=== PATIENT | male | born 1955 ===

== ENCOUNTER → 2023-07-10 14:11 | Outpatient (POV) | payer MEDICARE, SELFPAY ==
[2023-07-10 14:38] VITALS: BP 144/89; PULSE 61; RESP 20; O2SAT 98; BMI 29.5
--- NOTE | 2023-07-10 16:21 | EXP.PAIN.OV ---
HPI Data of Consult Patient: new to practice Consult date: 07/10/23 Requesting Physician: Brisa Perales APRN Primary Care Provider: TOBY Harvey Consult Narrative Reason for consult: Low back pain, right leg pain History of present illness: Mr. Baxter is a 67 year old male who presents today as a patient coming from the [facility]. Today he rates his pain a 5 out of 10. Patient states his pain is all in his low back and right leg. Patient states that this has been going on for years and unrelated to any specific trauma or injury. He does describe this as an aching, throbbing sensation with numbness and tingling into his right lower extremity. Patient does state the pain is worse with increased activity such as standing or walking. Patient states he does frequently have to stop and take breaks however if he is sitting he has no pain. Patient also states that overall when he is lying down and sleeping it does okay. Patient states that in the past he has gone to multiple providers that did do multiple therapies including physical therapy, PRP, compression table, lumbar RFA's. Patient states that all of this seemed to help some. He has been getting lumbar epidurals there at the [place] that have provided upwards of 75% relief and typically lasting 5 to 6 weeks with each of these. Patient has had 3 different injections with his last one just done in April. Patient does also have a significant health history of liver cancer and did just have a liver transplant 5 years ago in September. Patient states he has to be very cautious with what medications he takes due to this. Patient states that he does also have a abdominal hernia at the location of his prior liver scar and that this is going to be repaired within the next month or so at . Patient does state that he is still interested in doing additional epidurals in the future however he does want to take care of the hernia first. Patient does continue to do home physical therapy that was physician directed exercises from his last PT. His Shaheen has been reviewed and is appropriate. CC: Brisa Perales APRN [facility] Disclaimer: The information contained in this section may have been updated after the patient was seen, as this information can be updated by other users. Medical History (Updated 07/10/23 @ 16:25 by Brisa Perales APRN) BPH (benign prostatic hyperplasia) Degenerative disc disease, lumbar Hiatal hernia HTN (hypertension) Surgical History (Updated 07/10/23 @ 14:50 by Yeny Mckenna, BRAYDEN) H/O liver transplant History of ankle surgery History of repair of hiatal hernia Hx of cholecystectomy Hx of eye surgery Family History (Updated 07/10/23 @ 14:25 by Alicia Valdez RN) Other Unknown family medical history Social History (Updated 07/10/23 @ 14:39 by Yeny Mckenna RN) Smoking Status: Never smoker alcohol intake: former current occupational status: other Travel in the last 8 weeks: None Review of Systems Review of Systems Review of systems:: pertinent systems reviewed and negative unless documented below Review of systems (narrative): Review of Systems: General: No recent weight changes, no fever, no sleep disturbances Respiratory: No cough, no shortness of air, no recurring pulmonary infections Cardiovascular/peripheral vascular: No chest pain, no palpitations, no edema, no shortness of breath Gastrointestinal: No new onset incontinence, normal bowel movements reported Genitourinary: No new onset incontinence Musculoskeletal: Low back pain, right leg pain Psychiatric: [Normal mood/affect] Neurological: [Denies weakness in extremities], [denies balance issues] Meds Home Medications and Allergies Home Medications Medication Instructions Recorded Confirmed Type amlodipine 5 mg tablet 5 mg PO DAILY BLOOD PRESSURE 07/10/23 07/10/23 History aspirin 81 mg chewable tablet 81 mg PO DAILY 07/10/23 07/10/23 History entecavir 1 mg tablet 1 mg PO DAILY . 07/10/23 07/10/23 History mycophenolate mofetil 250 mg 500 mg PO BID 07/10/23 07/10/23 History capsule (CellCept) tacrolimus 0.5 mg capsule, 0.5 mg PO BID . 07/10/23 07/10/23 History immediate-release (Prograf) tamsulosin 0.4 mg capsule 0.4 mg PO DAILY PROSTATE 07/10/23 07/10/23 History New Prescriptions to Start Prescriptions: Allergies Allergy/AdvReac Type Severity Reaction Status Date / Time No Known Allergies Allergy Verified 07/10/23 14:19 Objective Vital signs: Pulse Resp BP Pulse Ox O2 Del Method 61 20 144/89 H 98 Room Air 07/10/23 14:38 07/10/23 14:38 07/10/23 14:38 07/10/23 14:38 07/10/23 14:38 Narrative: Physical Exam: General: Alert and oriented x3, no acute distress, pleasant and cooperative Lungs: Respirations even and unlabored, symmetrical chest expansion Eyes: PERRL Musculoskeletal: Flexion and extension of lumbar [spine] somewhat guarded secondary to pain, [antalgic gait noted] Neurological: Speech clear, no gross sensory deficit Assessment and Plan *Assessment and plan (1) Low back pain: Status: Acute Qualifiers: Chronicity: chronic Back pain laterality: right Sciatica presence: without sciatica Qualified Code(s): M54.50 - Low back pain, unspecified; G89.29 - Other chronic pain Category: Medical Code(s): M54.50 - Low back pain, unspecified (2) Right leg pain: Status: Acute Category: Medical Code(s): M79.604 - Pain in right leg (3) Spinal stenosis, lumbar region with neurogenic claudication: Status: Acute Category: Medical Code(s): M48.062 - Spinal stenosis, lumbar region with neurogenic claudication Plan Patient is experiencing low back pain with radiating symptoms to his right leg. I have discussed with the patient in future we can always do repeat lumbar epidurals. I also discussed with the patient that he does have findings consistent with lumbar spinal stenosis with neurogenic claudication symptoms. I discussed with the patient in future he may be a beneficial candidate of a minimally invasive lumbar decompression. Risk and benefits were discussed with the patient and we will follow-up at future visits. I also discussed with the patient that he may benefit from a compounded cream however he does have some concerns regarding the ingredients due to his history of liver transplant. I have given the patient a copy of the ingredients related to this medication he is going to check with his doctor if this is okay to take. Patient will contact our office if he would like us to send this order in. Patient will contact us for his next follow-up appointment due to his upcoming hernia surgery. Patient has been instructed to contact the clinic with any concerns before the next appointment. Dr. Deng has reviewed this note and agrees with this plan of care. This note was dictated using voice recognition software and make contain errors or omissions.
== END ==
PROVIDERS: PCP Physician Assistant; Visit Provider Nurse Practitioner Family
DX: M54.50 Low back pain, unspecified (principal); G89.29 Other chronic pain; M79.604 Pain in right leg; M48.062 Spinal stenosis, lumbar region with neurogenic claudication
CPT/HCPCS: 99202; G0463